=== PATIENT | female | born 1985 | race Caucasian/White ===

== ENCOUNTER → 2021-01-02 01:00 | Outpatient (CLI) | payer OTHER, SELFPAY ==
[2021-01-03 14:52] LABS: SARS-CoV-2 RNA PCR Negative
== END ==
PROVIDERS: Visit Provider Surgery Plastic and Reconstructive Surgery
DX: Z01.812 Encounter for preprocedural laboratory examination (principal); Z20.822 Contact with and (suspected) exposure to COVID-19
CPT/HCPCS: C9803; U0003; U0005

== ENCOUNTER 2021-01-05 01:54 | Day surgery (SDC) | payer OTHER, SELFPAY ==
[2020-12-29 14:13] VITALS: BMI 25.4
[2021-01-05] VITALS (10 sets, daily range): BP systolic 104–130; BP diastolic 62–92; PULSE 86–98; RESP 14–20; TEMP 36.3–36.9; O2SAT 96–99
--- NOTE | 2021-01-05 08:27 | WPDANESEPPF ---
Anes - Initial Pre Proc Eval Procedure: Operation Date: 01/05/21 10:00 Proposed Procedures p Abdominoplasty - Demetrio Ayoub MD s Liposuction Abdomen - Demetrio Ayoub MD Date/Time: 01/05/21 08:27 Surgeon: Demetrio Ayoub MD Pre Op Diagnosis: skin laxity Patient Data Age: 35 Gender: F Height: 1.52 m Weight: 59 kg Allergies Allergy/AdvReac Type Severity Reaction Status Date / Time ibuprofen AdvReac Unknown hearing Verified 01/05/21 08:59 loss Home Medications Medication Instructions Recorded Confirmed Type trazodone 50 mg tablet 50 mg PO QHS PRN 10/22/20 12/29/20 History docusate sodium 100 mg capsule 100 mg PO DAILY #14 cap 12/09/20 12/29/20 Rx ondansetron HCl 4 mg tablet 4 mg PO Q8H #28 tablet 12/09/20 12/29/20 Rx carisoprodol 350 mg tablet 350 mg PO TID PRN #21 tablet 12/11/20 12/29/20 Rx oxycodone-acetaminophen 5 mg-325 1 tablet PO Q6H PRN #15 tablet 12/11/20 12/29/20 Rx mg tablet albuterol 90 mcg INHALATION Q6H PRN 12/29/20 12/29/20 History bupropion HCl 300 mg PO HS 12/29/20 12/29/20 History metoprolol succinate 25 mg PO DAILY PRN 12/29/20 12/29/20 History Laboratory Tests 01/05/21 08:16 Cotinine Pending Patient hx anesthesia problems: none Family hx anesthesia problems: none [facility] Past Medical History Medical History (Updated 01/05/21 @ 09:10 by Alvaro Borja DO) Anxiety Asthma Depression Migraine Palpitation SVT (supraventricular tachycardia) Social History Social History Smoking status: Never smoker Alcohol intake: current Drinks per week: 2 Substance use: never Substance use type: does not use Living arrangements: with family Spiritual care concerns: No Anes - Eval Final PreProcedure Day of Procedure 01/05/21 08:27 Patient weight: overweight Heart: regular rate and rhythm Lungs: clear to auscultation and normal air movement Airway: Mallampati scale class II Neurological: alert and oriented Last oral intake: >/= 8 hours ASA classification: III Emergent: no Anesthetic plan: proceed Anesthesia type and monitoring: general ETT and standard monitoring Informed Consent: The patient's anesthetic plan and its attendant risks and benefits were discussed with the patient/family/POA. Questions were solicited and answers provided to the satisfaction of the patient/family/POA.
[2021-01-05 08:36] LABS: Urine Cotinine NEGATIVE
[2021-01-05] MEDS: LACTATED RINGERS 1,000 ML 30 ML IV CONT ×3 (08:48→14:46)
--- NOTE | 2021-01-05 09:58 | WPDHPUPDATE1 ---
History and Physical Update Update Date/Time: 01/05/21 09:58 History and Physical has been reviewed, including an updated exam of the patient. There are NO changes in the patient's condition. Risks, benefits, and alternatives have been discussed and questions answered. Patient agrees to proceed with procedure.
[2021-01-05] MEDS: ceFAZolin 2 GM/D5W 50 ML 2 GM/50 ML BAG IVPB (10:20)
--- NOTE | 2021-01-05 10:21 | PM.PROC ---
Procedure Note - Detailed Date of procedure: 01/05/21 Pre-op diagnosis: skin laxity localized adiposity Post-op diagnosis: same Procedure performed: 1. Suction lipectomy abdomen 2. Progressive tension abdominoplasty Description of procedure: She is here today for abdominoplasty. Previously and again today the risks, benefits, alternatives were discussed in extensive detail. I wanted her to be very realistic about the risks involved as well as expectations. We discussed aftercare and what to monitor for. I was very upfront about the risks of wound breakdown leading to loss of skin, open wounds, and need for additional procedures with permanent abdominal deformity. We discussed DVT/PE risks and management. Made sure answered all of her questions to her satisfaction today and consent was obtained. She was marked in the preoperative holding area with their verification. The patient was taken to the operating room placed supine on the operating table. Anesthesia was provided by anesthesiology. A alvarez catheter was started. She was prepped and draped in a standard sterile fashion. A surgical time-out was taken. I placed the patient in a flexed position to verify the upper and lower markings would reach. I then placed her supine. A thorough abdominal examination was completed. Stab incisions were made and used tumescent solution. Using a 4mm basket cannula based on [employer] in multiple planes and passes I completed suction lipectomy based on pre-operative markings, estimates and intraoperative volumes / rolling pinch test. During this portion of the procedure we did roll the patient to lateral decubitus position with care taken to protect the patient during these transitions. A 10 blade was used to make the upper incision. I continued dissection down to the level of fascia. Elevated just what was necessary for repair of the diastasis and discontinuous undermining otherwise. I then again flexed the bed to verify the upper skin flap would reach the lower markings without tension. Once verified I placed her supine once again and a 10 blade used to make the lower incision. I elevated up to level the umbilicus and left the umbilicus intact on a well-vascularized stalk. The intervening tissue was removed. A 2 mm blunt cannula and Exparel which was mixed 20 cc in 100 cc for a total volume of 120 cc I injected deep to the fascia bilaterally as well as along the incision lines. I plicated the diastasis recti using 0 PDO stratafix barbed suture. This was in 2 separate layers using 2 separate sutures as well. I repaired around the umbilicus leaving plenty of room for well-vascularized stalk of the umbilicus with 2-0 PDS. The patient was flexed and starting from superior to inferior began plication using 2-0 Vicryl to obliterate all space in a standard progressive tension fashion. At the umbilicus I marked out the location of the skin and inset this with 3-0 Monocryl and 4-0 nylon. I continued the remainder of the plication using 2-0 Vicryl until I reached my lower planned scar line. I trimmed any excess skin of the upper flap making sure this was a tension-free closure. I then approximated using a 3 point suture with 2-0 Vicryl followed by 3-0 stratafix ,running subcuticular 4-0 Monocryl, and tissue glue. Fluffs and an abdominal binder were placed. The patient was transferred to the bed in a flexed position. Awoken and taken to the PACU without difficulty. All instrument and sponge counts were correct at the end of the case. Anesthesia: GETA Surgeon: Demetrio Ayoub MD Estimated blood loss (mL): 30 Drains: No Packing: No Pathology: none sent Complications: No immediate complications Condition: stable Disposition: PACU Findings: Abdominal tissue weight: 1078.6 grams Lipoaspirate: 1550 cc
[2021-01-05] MEDS: LACTATED RINGERS IRRIG 1,000 ML, LIDOCAINE HCL 1% LOCAL INJ 50 ML, EPINEPHrine HCL INJ ... INFILTRATE (12:32)
[2021-01-05] MEDS: fentaNYL CITRATE INJ (*CRX) 100 MCG/2 ML VIAL 25 MCG IV PUSH ×4 (14:32→14:51)
[2021-01-05] MEDS: ONDANSETRON INJ 4 MG/2 ML VIAL IV PUSH ×2 (14:35→19:50)
[2021-01-05 15:17] LABS: HIV 1/2 Ab P24 Ag Result Negative (Negative); Hepatitis B Surface Anti Res Positive; Hepatitis C Virus Antibody Negative (Negative)
[2021-01-05] MEDS: oxyCODONE/ACETAMINOPHEN (*CRX) 5-325 MG TABLET PO ×2 (15:42→22:56)
[2021-01-05] MEDS: LACTATED RINGERS 1,000 ML 125 ML IV CONT (15:44)
[2021-01-05] MEDS: carisoprodoL (*CRX) 350 MG TABLET PO (17:47)
[2021-01-05] MEDS: MORPHINE SULFATE (*CRX) 2 MG/ML INJ IV PUSH ×2 (19:53→21:45)
[2021-01-05] MEDS: ENOXAPARIN 40 MG/0.4 ML SYRINGE SUB-Q (19:54)
[2021-01-05] MEDS: buPROPion HCL XL (24 HR) 150 MG TABCR 300 MG PO (19:56)
[2021-01-06] MEDS: carisoprodoL (*CRX) 350 MG TABLET PO ×2 (00:20→07:24)
[2021-01-06] MEDS: ONDANSETRON INJ 4 MG/2 ML VIAL IV PUSH (01:30)
[2021-01-06 01:50] VITALS: BP 95/58; PULSE 70; RESP 16; O2SAT 98
[2021-01-06] MEDS: LACTATED RINGERS 1,000 ML 125 ML IV CONT (01:57)
[2021-01-06 02:30] VITALS: BP 102/64; PULSE 72; RESP 16; TEMP 37; O2SAT 100
[2021-01-06] MEDS: MORPHINE SULFATE (*CRX) 2 MG/ML INJ IV PUSH (02:50)
[2021-01-06] MEDS: oxyCODONE/ACETAMINOPHEN (*CRX) 5-325 MG TABLET PO ×3 (05:24→11:09)
[2021-01-06 05:25] VITALS: BP 98/64; PULSE 78; RESP 18; TEMP 36.4; O2SAT 100
--- NOTE | 2021-01-06 06:49 | WPDPN ---
Progress Note: A&P Assessment and Plan (1) Skin laxity: Code(s): L57.4 - Cutis laxa senilis Status: Acute Assessment and Plan: She is doing very well after progressive tension abdominoplasty with suction lipectomy of abdomen. Will discharge home. Follow up in 1 week. Today we had a lengthy conversation with her and her discussing the care. Went over what monitor for. Made sure to answer all of their questions to their satisfaction. They are blue voiced understanding. I will see them back. They will call with any questions or concerns in the meantime. (2) Localized adiposity: Code(s): E65 - Localized adiposity Status: Acute Time Spent With Patient Time with patient: 15 - 25 minutes Review of Systems Review of Systems: All systems reviewed & are unremarkable except as noted in HPI and below Exam Narrative: Exam Narrative: Abdomen is healing well. I see no signs of infection. No hematoma. No seroma. Good color and capillary refill throughout. Const: General: comfortable, no acute distress, alert and awake; No acute distress Orientation/consciousness: oriented to person HENMT: Head: normal to inspection Ears: external ears normal General nose exam: Normal external nose present Face and sinus: normal facial exam Eyes: General: appearance normal, both eyes and all related structures Periorbital: periorbital findings normal Eyelids: eyelids normal Conjunctivae: conjunctivae normal Neck: Neck: normal visual inspection Chest: Chest palpation & inspection: normal inspection of the chest Resp: Effort & Inspection: normal respiratory effort and able to speak in complete sentences GI: Inspection: normal to inspection Neuro: General: oriented to person Psych: Appearance: grossly normal Mental Status: mental status grossly normal Objective Data Vital Signs Vital Signs: Vital Signs - 24 hr 01/05/21 08:30 01/05/21 13:59 01/05/21 14:10 Temperature 36.8 C 36.4 C Pulse Rate 98 87 90 Respiratory Rate 18 14 20 Blood Pressure 128/92 H 108/69 104/68 Pulse Oximetry 98 99 01/05/21 14:25 01/05/21 14:40 01/05/21 14:55 Temperature Pulse Rate 86 88 89 Respiratory Rate 20 20 20 Blood Pressure 128/80 126/65 125/67 Pulse Oximetry 99 98 97 01/05/21 15:10 01/05/21 15:28 01/05/21 19:40 Temperature 36.3 C L 36.9 C Pulse Rate 86 97 94 Respiratory Rate 16 16 16 Blood Pressure 118/75 130/74 120/80 Pulse Oximetry 97 96 97 01/05/21 22:57 01/06/21 01:50 01/06/21 02:30 Temperature 36.9 C 37.0 C Pulse Rate 87 70 72 Respiratory Rate 16 16 16 Blood Pressure 110/62 95/58 L 102/64 Pulse Oximetry 98 98 100 01/06/21 05:25 Temperature 36.4 C Pulse Rate 78 Respiratory Rate 18 Blood Pressure 98/64 L Pulse Oximetry 100 Intake/Output Intake/Output: Intake & Output 01/03/21 01/04/21 01/05/21 01/06/21 23:59 23:59 23:59 23:59 Intake Total 1950 Balance 1950 Meds/Results Medications: Active Medications Generic Name Dose Route Start Last Admin Trade Name Freq PRN Reason Stop Dose Admin Albuterol 1 puff 01/05/21 15:13 Albuterol Sulfate (*Sp) Aerosol 1 Puff INHALATION Q6H PRN Bronchospasm Bupropion HCl 300 mg 01/05/21 21:00 01/05/21 19:56 Bupropion Hcl Xl (24 Hr) 150 Mg Tabcr PO 300 mg HS IRVIN Administration Carisoprodol 350 mg 01/05/21 18:00 01/06/21 00:20 Carisoprodol (*Crx) 350 Mg Tablet PO 350 mg Q6HR IRVIN Administration Docusate Sodium 100 mg 01/05/21 21:00 01/05/21 20:20 Docusate Sodium 100 Mg Capsule PO Not Given Q12HR IRVIN Enoxaparin Sodium 40 mg 01/05/21 20:00 01/05/21 19:54 Enoxaparin 40 Mg/0.4 Ml Syringe SUB-Q 40 mg DAILY IRVIN Administration Lactated Ringer's 1,000 mls @ 125 mls/hr 01/05/21 13:55 01/06/21 01:57 Lr - Lactated Ringers Iv IV CONT 125 mls/hr .Q8H IRVIN Administration Metoprolol Succinate 25 mg 01/05/21 15:13 Metoprolol Succinate Ext Rel 25 Mg Tabcr P
--- NOTE | 2021-01-06 06:52 | PM.DS ---
DS: Admitting Diagnosis Admitting Diagnosis Admitting Diagnosis: Skin laxity Localized adiposity DS: Discharge Diagnosis Discharge Diagnosis (1) Skin laxity: Code(s): L57.4 - Cutis laxa senilis Status: Acute (2) Localized adiposity: Code(s): E65 - Localized adiposity Status: Acute DS: Summary Hospital Course Hospital Course: She underwent progressive tension abdominoplasty with suction lipectomy of the abdomen. Postoperatively she took a little time to get good pain control. By the time of discharge she was much improved. Will discharge home and follow up and awake. Time Spent with Patient Time attestation: Total time spent providing and/or coordinating discharge services: 20 minutes Exam Narrative: Exam Narrative: Abdomen is healing well. I see no signs of infection. No hematoma. No seroma. Good color and capillary refill throughout. Const: General: comfortable, no acute distress, alert and awake; No acute distress Orientation/consciousness: oriented to person HENMT: Head: normal to inspection Ears: external ears normal General nose exam: Normal external nose present Face and sinus: normal facial exam Eyes: General: appearance normal, both eyes and all related structures Periorbital: periorbital findings normal Eyelids: eyelids normal Conjunctivae: conjunctivae normal Neck: Neck: normal visual inspection Chest: Chest palpation & inspection: normal inspection of the chest Resp: Effort & Inspection: normal respiratory effort and able to speak in complete sentences GI: Inspection: normal to inspection Neuro: General: oriented to person Psych: Appearance: grossly normal Mental Status: mental status grossly normal DS: Data Data Completed and Pending Labs on day of discharge: Labs from last 24 hours 01/05/21 01/05/21 14:06 08:16 Cotinine Negative Hep Bs Antibody Positive Hepatitis C Ab Screen Negative HIV 1&2 Ab/P24 Ag 4thGn Negative Discharge Plan Discharge Patient Disposition: Home, Self-Care Discharge Instructions: POST OPERATIVE DISCHARGE INSTRUCTIONS DEMETRIO AYOUB M.D. [facility] [id number] [facility] [facility] [address] [facility] [address] [address] [place] [address] [address] for 24 hours after anesthesia and while you are taking pain medication. Take all prescribed medication as directed Diet as tolerated. No lifting or activity that raises blood pressure for 48 hours. Regular walking / ambulation. No showering until directed to. Once you shower do not take pain medication before showering as the combination of medication and heat may cause you to feel dizzy or pass out. No pools or tubs for 2 weeks. Call with any questions or concerns. Slowly stand up straight as tolerated. No straining or lifting more than 20 pounds for 6 weeks. Dressing Care: Abdominal binder 23 hours per day. May shower. If you have any questions or concerns, please call the office . If it is after hours you will be directed to the police communications dispatcher exchange. Shortness of breath, chest pain, or other medical emergency dial 911 / proceed to the Emergency Room. Remove the Scopolamine patch that was placed behind your ear in 72 hours or less. Wash your hands after touching. Stand Alone Forms: General Discharge Instructions Follow-up/Referrals: Demetrio Ayoub MD [Physician] - 1 Week Discharge Medications: Continued trazodone 50 mg tablet 50 mg PO QHS PRN (Reason: Insomnia) RF: 0 docusate sodium [Colace] 100 mg capsule 100 mg PO DAILY Qty: 14 RF: 0 ondansetron HCl [Zofran] 4 mg tablet 4 mg PO Q8H Qty: 28 RF: 0 carisoprodol [Soma] 350 mg tablet 350 mg PO TID PRN (Reason: muscle pain) Qty: 21 RF: 0 oxycodone-acetaminophen [Percocet] 5-325 mg tablet 1 tablet PO Q6H PRN (Reason: pain) Qty: 15 RF: 0 albuterol 90 mcg/actuation Aerosol 90 mcg INHALATION Q6H PRN (Reason: Bronchospasm) RF: 0 metoprolol succi
[2021-01-06 07:15] VITALS: BP 98/65; PULSE 102; RESP 16; TEMP 37.1; O2SAT 97
--- NOTE | 2021-01-06 10:55 | WPDANESPN ---
Anes - Prog Note Post-Op Date/Time: 01/06/21 10:55 Cardiovascular status: normal Respiratory status: normal Airway patency: baseline Mental status: baseline Post-Op hydration status: normal Vital Signs: Last Vital Signs Temp 37.1 C 01/06/21 07:15 Pulse 102 H 01/06/21 07:15 Resp 16 01/06/21 07:15 BP 98/65 L 01/06/21 07:15 Pulse Ox 97 01/06/21 07:15 Pain Score (VAS): Patient states 5/10 pain on self reported pain scale. Patient resting up to bedside chair at time of assessment. Pain being treated with PRN pain medication. Nausea with relief with PRN meds. Support person at bedside. I/O: Intake & Output 01/05/21 01/06/21 01/06/21 23:59 07:59 15:59 Intake Total 1000 Output Total 300 Balance 1000 -300 01/05/21 14:06 Hep Bs Antibody Positive Hepatitis C Ab Screen Negative HIV 1&2 Ab/P24 Ag 4thGn Negative Post-procedural complaints: nausea Patient Feedback: Patient satisfied with anesthetic care.
[2021-01-06] MEDS: DOCUSATE SODIUM 100 MG CAPSULE PO (11:09)
== END 2021-01-06 11:15 | disposition home or self-care (01) ==
LOC: ANHSURGERY 10:21 → ANHOB2 15:15
PROVIDERS: PCP Family Medicine; Visit Provider Surgery Plastic and Reconstructive Surgery
PROC: (CPT 15877; principal; 2021-01-05 10:00)
PROC: (CPT 15877; 2021-01-05 10:00)
DX: Z41.1 Encounter for cosmetic surgery (principal); E65 Localized adiposity; L57.4 Cutis laxa senilis; J45.909 Unspecified asthma, uncomplicated; I47.1 Supraventricular tachycardia; F41.8 Other specified anxiety disorders; Z79.899 Other long term (current) drug therapy
CPT/HCPCS: 15877; 15830; 15847; 80307; 86703; 86706; 86803; 99199; A9270; C9290; G0432; J0171; J0690; J1100; J1170; J1650; J2250; J2270; J2405; J2704; J2710; J3010; J7120